=== PATIENT | female | born 1980 | race Caucasian/White ===

== ENCOUNTER 2016-08-26 16:34 | Emergency (ER) | payer MEDICAID ==
[2016-08-26] MEDS ORDERED: ONDANSETRON 4 MG VIAL ONE (18:55)
[2016-08-26] MEDS ORDERED: CEFTRIAXONE 1 GM VIAL ONE (18:55)
[2016-08-26] MEDS ORDERED: DICYCLOMINE 20MG/2ML VIAL IM ONE (18:55)
[2016-08-26] MEDS ORDERED: SODIUM CHLORIDE 0.9% 100 ML IV ONE (18:56)
[2016-08-26] MEDS ORDERED: SODIUM CHLORIDE 0.9% 1,000 ML ONE (18:56)
== END 2016-08-26 21:32 | disposition home or self-care (01) ==
LOC: ER 16:34
DX: N30.00 Acute cystitis without hematuria (principal); J02.0 Streptococcal pharyngitis; Z87.891 Personal history of nicotine dependence
CPT/HCPCS: 36415; 74022; 80053; 81001; 83690; 84703; 85025; 87088; 87880; 96361; 96365; 96372; 96375